=== PATIENT | female | born 1950 | race Caucasian/White ===

== ENCOUNTER → 2018-10-08 | Outpatient (CLI) | payer OTHER | LOC: CAT 08:19 | DX: Z13.6 Encounter for screening for cardiovascular disorders (principal); E78.00 Pure hypercholesterolemia, unspecified; Z82.49 Family history of ischemic heart disease and other diseases of the circulatory system ==

== ENCOUNTER 2018-11-18 09:39 | Observation (INO) | payer OTHER ==
[~2018-11-18] VITALS: Ht 157.5 cm; Wt 104.1 kg
[2018-11-18 10:16] VITALS: BP 124/54
[2018-11-18] MEDS ORDERED: LIPITOR 20 MG T20 M1 PO (10:23)
[2018-11-18] MEDS ORDERED: ASPIRIN325 PO (10:23)
[2018-11-18 10:24] LABS: HEMATOCRIT 40.3 % (37.0-47.0); HEMOGLOBIN 13.6 gm/dL (12.0-15.0); MCH 30.5 pg (26.0-34.0); MCHC 33.7 g/dL (28.0-37.0); MCV 90.4 fL (80.0-100.0); RBC 4.46 mil/uL (4.20-5.00); RDW 13.4 % (10.5-14.5); WBC 6.8 thou/uL (4.0-11.0)
[2018-11-18] MEDS ORDERED: PRINIVIL10 MG PO (10:24)
[2018-11-18] MEDS ORDERED: PAXIL10 MG PO (10:24)
[2018-11-18 10:32] LABS: CALCIUM 9.9 mg/dL (8.5-10.1); POTASSIUM 4.6 mmol/L (3.5-5.1)
--- NOTE | 2018-11-18 15:23 | CATHLAB ---
[facility] [address] [place] [address] INVASIVE PROCEDURE REPORT Name: LASHANDABOBBY [facility] [id number] ������������� Admission: 11/18/18 ������������� Attend Phys: Valente Dc Discharge: ��� ������������� ��� Date of : 52 Date of Service: 11/18/18 1523 �� Report #: [id number] �������� ��������������������������������������������[id number] THIS REPORT FOR: //name// APPROVED REPORT Study performed: 11/18/2018 10:43:15 Patient Details Patient Status: Out-Patient Room #: The patient is a 68 year-old female Event Personnel Valente Olivas Hockey Scout, Jenny Dunne Monitor, Lauren Dunne RTR Monitor, Orlin Martin RN RN, Satya Bermeo RTR Scrub, Tree Alfonso RTR Scrub Procedures Performed Art Access - R femoral artery* Hemostasis w/ Mynx Left Heart Cath w/or w/o Coronaries [id number] [facility] [address] Place w/wo Plasty Single LAD 664319 51101 Initial Mod Sed Same Phys/QHP Gr5y 463490 21242 Mod Sed Same Phys/QHP Ea [id number], supervision of conscious sedation Indication Dyspnea, Positive stress test, Chest pain Procedure Narrative The Right Groin^ was infiltrated with 1% Lidocaine subcutaneous anesthesia. A PINNACLE 4FR Sheath #[id number] sheath was inserted into the RFA 4 fr^. Coronary angiography was performed using coronary diagnostic catheters. The right coronary system was accessed and visualized with a 4FR AR MOD #[id number] catheter. The left coronary system was accessed and visualized with a JL 4 catheter. The left ventricle was accessed and visualized with a ANGLED PIGTAIL catheter. Left ventricular/Aortic Valve gradient assessed via catheter pullback. Pre-demployment femoral angiogram was performed . Closure device was deployed with a 6 Fr MYNXGRIP 6/7F #[id number]. There was no hematoma. Intraoperative Conscious Sedation Sedation start time: 11:06 Case end Time: 12:04 Versed 4 mg Fluoro Time: 16.30 minutes [facility] [address] [place] [address] INVASIVE PROCEDURE REPORT Name: BOBBY PYLE Room #: REG [facility]#: [id number] ������������� Admission: 11/18/18 ������������� Attend Phys: Valente Dc Discharge: ��� ������������� ��� Date of : 52 Date of Service: 11/18/18 1523 �� Report #: [id number] �������� ��������������������������������������������[id number] Dose: DAP 58643.45 cGycm2 2326 mGy Contrast Type and Amount: Omnipaque 115 ml Coronary Angiography The patient's coronary anatomy is right dominant. Diagnostic Cath Left Main Normal origin moderate to large caliber bifurcates left anterior descending left circumflex. There is a mild proximal taper of under 50%. No high-grade lesions are noted. LAD Moderate caliber type II vessel with proceeds in the anterior interventricular sulcus. Following the origin of first diagonal branch there is a tortuous segment of the proximal mid LAD visit eccentric greater than 90% stenosis. The vessel then continues on reconstitutes itself in a tortuous fashion towards the apex and terminates is a small-caliber vessel at the apex Diagonal 1 Small-caliber vessel without significant high-grade lesions noted Circumflex Small-caliber vessel which courses posteriorly gives rise to an early marginal versus ramus branch. The vessel continues posteriorly giving rise to posterior lateral marginal branch without high-grade lesions but an presence of luminal irregularities noted OM1 Small-caliber less than 1 mm vessel and has sequential 70 and 90% blockages. The vessel then rapidly tapers to less than 1 mm diameter and terminates in the mid left ventricular chamber level Right Coronary Moderate to large caliber vessel normal origin proceeds in the AV groove. The proximal portion there is an eccentric 50% lesion followed by a eccentric less stenotic portion. The vessel then continues on after giving rise to small nondominant significant RV marginal branches to the crux of the heart were posterior descending artery originates. There is a proximal/ostial eccentric 50% lesion noted but does not appear to flow limiting and does not dampen with catheter placement. R PDA Small caliber vessel free of high-grade disease Left Ventriculography Left Ventriculography was not performed. Hemodynamics The aortic pressure is 124/57 mmHg with a mean of 82 mmHg. The left ventricular pressure is 142/9 mmHg with a mean of mmHg. The left ventricular end diastolic pressure is 28 mmHg. PCI Technique [facility] [address] [place] [address] INVASIVE PROCEDURE REPORT Name: BOBBY PYLE Room #: REG SHAJI Kwon#: [id number] ������������� Admission: 11/18/18 ������������� Attend Phys: Valente Dc Discharge: ��� ������������� ��� Date of : 52 Date of Service: 11/18/18 1523 �� Report #: [id number] �������� ��������������������������������������������[id number] After determination intervention was appropriate the 4 Egyptian system was exchanged for a 6 Egyptian system. A standard Radha left guide was engaged the left coronary ostium with her was some dampening noted. This was removed and a Turned On Digital JL4 sidehole catheter was then placed. He'll 14 wire was advanced distally and a 2.5 x 18 mm Medtronic AUBREE stent was primarily deployed. This required several inflations maximum of 20 ana lilia for full deployment visualization. The device is a then removed and imaging demonstrated excellent results. At this point attention was placed to the first marginal/ramus and was deemed to be less than 1.5 mm in diameter. Therefore intervention was not carried forth. Patient tolerated procedure well. Was given Effient post procedure. PCI Technique Lesion Percutaneous coronary intervention was performed on the mid left anterior descending artery segment. A VISTA 6FR JL4 #[id number] Guide Catheter was used to engage the ostium. A Luge Wire (J) .014 X 182CM #[id number] Interventional Guidewire was used to cross the lesion. STENT DEPLOYMENT A drug-eluting stent RESOLUTE LADI OTW 2.5 X 18 #[id number] was inserted and inflated up to 12.00atm for 15seconds. Additional Inflation: 16.00atm for 9seconds. Additional Inflation: 20.00atm for 9seconds. Conclusion 1. Coronary artery disease severe single-vessel 2. Normal hemodynamics Date. Successful percutaneous revascularization of the proximal mid left anterior descending artery with a 2.5 x 18 mm resolute AUBREE stent taken to 20 ana lilia Recommendations Cardiac Risk Reduction Program Continued dual antiplatelet therapy regimen percent of protocol. Medications Administered Prasugrel ��������������������������������������������� <ELECTRONICALLY SIGNED> ���������������������������������������� By: Valente Olivas MD ��������������������������������������������� 11/18/18 1523 1523 1523 Valente Olivas MD /INF
--- NOTE | 2018-11-18 19:16 | NUR ---
TO THE UNIT FROM BLIND ESCORT - ORIENTED TO ROOM AND BEDSPACE. ASSESSMENT CHARTED - PT UP TO THE CHAIR AMBULATED TO THE BATHROOM GROIN SITE STABLE - NO CO'S OF PAIN.
[2018-11-18 19:33] VITALS: BP 116/41
[2018-11-19 03:25] VITALS: BP 118/43
--- NOTE | 2018-11-19 06:52 | NUR ---
PATIENTS CAREES WERE ASSUMED AT SHIFT CHANGE, PATIENT WAS ASSESED AND MEDS WERE PASSSED. THIS HAS BEEN AN UNEVENTFUL NIGHT FOR HER. NURSING BELIEVES SHE SLEPT SEVEN TO EIGHT HOURS. ROUNDING WAS DONE. THE BED IS IN A LOW AND LOCKED POSITION
[2018-11-19] MEDS ORDERED: EFFIENT10 MG PO (08:03)
--- NOTE | 2018-11-19 08:05 | EKG ---
[place] [address] [address] [place] [address] ELECTROCARDIOGRAM REPORT Name: BOBBY PYLE Room #: 202-P [facility].#: [id number] ������������������ Admission: 11/18/18 ������������������ Attend Phys: Valente Olivas Discharge: ������������������ Date of : 52 Report #: [id number] ����������������������������������������������������������������� [id number] THIS REPORT FOR: //name// [facility] Test Date: 2018-11-18 Test Time: 10:03:49 Pat Name: BOBBY PYLE Department: Room: 202 Gender: F Alteration Inspector: Meg RIDLEY : 1950 Requested By: Valente Olivas Order Number: [id number] MD: Davin White Measurements Intervals [place] Rate: 66 P: 50 MO: 145 QRS: 52 QRSD: 90 T: 22 QT: 386 QTc: 405 Interpretive Statements Sinus rhythm Normal tracing No previous ECG available for comparison Electronically Signed On 11-19-2018 8:04:47 CDT by Davin White [email or web address] ��������������������������������������������� <ELECTRONICALLY SIGNED> ���������������������������������������� By: Davin White MD, LOCATED WITHIN [facility] ��������������������������������������������� 11/19/18 0804 1003 1003 Davin White MD, FACC /EPI
[2018-11-19 08:10] VITALS: BP 140/63
[2018-11-19] MEDS ORDERED: CRESTOR40 MG PO (08:19)
[2018-11-19 11:10] VITALS: BP 139/50
[2018-11-19 15:55] VITALS: BP 137/60
[2018-11-19 16:19] VITALS: BP 137/60
--- NOTE | 2018-11-19 18:41 | NUR ---
ASSUMED CARE OF PATIENT AT 0700. PATIENT IS UP AD JERARDO IN THE ROOM. SHE HAS A RIGHT GROIN SITE WHICH IS CLEAN, DRY AND INTACT WITHOUT SIGNS OF HEMATOMA OR EDEMA. PATIENT DENIES ANY TENDERNESS. SHE IS ANXIOUS TO GO HOME. ASSESSMENTS CHARTED. PATIENT D/C AT [address] EDWARDS. RIGHT GROIN SITE AGAIN FREE FROM ANY HEMATOMA, EDEMA OR PAIN. PATIENT STATES THAT SHE HAS ALL OF HER BELONGINGS. SHE STATES THAT SHE FEELS BETTER THAN SHE DID WHEN SHE ARRIVED. SHE WAS TAKEN VIA WHEELCHAIR TO THE ER ENTRANCE TO BE DRIVEN HOME BY HER .
== END 2018-11-19 16:55 | disposition home or self-care (01) ==
LOC: CATH 09:39 → 2N 18:44
PROVIDERS: ADMIT Internal Medicine
DX: I25.10 Atherosclerotic heart disease of native coronary artery without angina pectoris (principal); I10 Essential (primary) hypertension; R93.1 Abnormal findings on diagnostic imaging of heart and coronary circulation; Z79.899 Other long term (current) drug therapy

== ENCOUNTER → 2019-12-06 | Outpatient (CLI) | payer OTHER ==
[~2019-12-06] MED LIST: ASPIRIN325 PO; CRESTOR40 MG PO; EFFIENT10 MG PO; LIPITOR 20 MG T20 M1 PO; PAXIL10 MG PO; PRINIVIL10 MG PO
== END ==
LOC: SJCVC 13:35
PROVIDERS: ATTEND Internal Medicine
DX: I49.1 Atrial premature depolarization (principal); I25.10 Atherosclerotic heart disease of native coronary artery without angina pectoris; I10 Essential (primary) hypertension; E78.5 Hyperlipidemia, unspecified; J30.2 Other seasonal allergic rhinitis; Z79.82 Long term (current) use of aspirin; Z79.899 Other long term (current) drug therapy; Z87.891 Personal history of nicotine dependence

== ENCOUNTER → 2020-12-07 | Outpatient (CLI) | payer OTHER ==
[~2020-12-07] MED LIST changes: +ASA81BEC PO; +PAXIL40 MG PO; +PLAVIX 75 MG TA75 MG PO; -PRINIVIL10 MG PO; +PUB MULTIVITAM1 EACH PO; +ZESTRIL10 MG PO
== END ==
LOC: SJCVCIMAG 13:42
PROVIDERS: ATTEND Internal Medicine
DX: I07.1 Rheumatic tricuspid insufficiency (principal); I25.10 Atherosclerotic heart disease of native coronary artery without angina pectoris; Z79.899 Other long term (current) drug therapy

== ENCOUNTER → 2020-12-15 | Outpatient (CLI) | payer OTHER ==
[~2020-12-15] MED LIST changes: +PERCOCET PO
[2020-12-15 13:50] LABS: URINE BILIRUBIN NEGATIVE (Negative); URINE BLOOD 1+ (Negative); URINE CLARITY CLEAR; URINE COLOR YELLOW; URINE GLUCOSE-RANDOM* NEGATIVE (Negative); URINE KETONES NEGATIVE (Negative); URINE LEUKOCYTES-REFLEX NEGATIVE (Negative); URINE NITRITE-REFLEX NEGATIVE (Negative); URINE PROTEIN (DIPSTICK) NEGATIVE (Negative); URINE SPECIFIC GRAVITY 1.025 (1.005-1.035); URINE UROBILINOGEN 0.2 E.U./dl (0.2-1.0)
[2020-12-15 13:51] LABS: HEMATOCRIT 39.2 % (37.0-47.0); HEMOGLOBIN 12.9 gm/dL (12.0-15.0); MCH 30.2 pg (26.0-34.0); MCV 91.5 fL (80.0-100.0); RBC 4.29 mil/uL (4.20-5.00); RDW 13.3 % (10.5-14.5); WBC 6.9 thou/uL (4.0-11.0)
[2020-12-15 14:04] LABS: INR 0.97; PROTIME 10.6 Seconds (10.5-12.1)
[2020-12-15 14:05] LABS: SQUAMOUS 0-3 Few /LPF (0-3); URINE WBC-REFLEX 0-5 Rare /HPF (0-5)
[2020-12-15 14:06] LABS: BACTERIA-REFLEX 1-9 Few /HPF (None Seen); URINE RBC 3-10 Few /HPF (NONE SEEN)
[2020-12-15 14:18] LABS: ALBUMIN 3.7 g/dL (3.4-5.0); CALCIUM 8.8 mg/dL (8.5-10.1); CREATININE 1.1 mg/dL (0.6-1.0); POTASSIUM 5.3 mmol/L (3.5-5.1)
== END ==
LOC: PAC 12:21
PROVIDERS: ATTEND Orthopaedic Surgery
DX: Z20.822 Contact with and (suspected) exposure to COVID-19 (principal); T84.038A Mechanical loosening of other internal prosthetic joint, initial encounter; Y83.8 Other surgical procedures as the cause of abnormal reaction of the patient, or of later complication, without mention of misadventure at the time of the procedure; Y92.89 Other specified places as the place of occurrence of the external cause

== ENCOUNTER 2020-12-19 06:32 | Day surgery (SDC) | payer OTHER ==
[~2020-12-19] VITALS: Ht 157.5 cm; Wt 102.1 kg
--- NOTE | ~2020-12-19 | O ---
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 PROCEDURE: Revision right total knee arthroplasty patella only. SURGEON: Sanjeev Soliz MD. FOOT TENDER: Brenda Nascimento PA-C. INDICATION FOR FOOT TENDER: Throughout the case, extensive retraction and manipulation of the knee was required. This was afforded to me by my bankruptcy assistant. ANESTHESIA: LMA with adductor canal block. IMPLANTS: Casanova and Nephew size 35 patella. TOURNIQUET TIME: 29 minutes. ESTIMATED BLOOD LOSS: 25 mL SPECIMENS: Intraoperative cultures were taken and sent. CONDITION UPON LEAVING THE OR: Stable. INDICATIONS FOR PROCEDURE: The patient is a 70-year-old female who is several years out from a right total knee arthroplasty performed by a different surgeon and myself. She came to me for a second opinion. She has been having anterior knee pain, particularly a click at about 30 degrees of flexion. This clicking has been increasingly painful and x-rays showed possible loosening of her patellar component. Bone scan was performed and this did light up around her patellar component. It was felt that she had aseptic loosening of her patella. After discussion with her, she elected for revision of her total knee arthroplasty of the patellar component only. DESCRIPTION OF PROCEDURE: Risks, benefits, alternatives, complications were [facility] [address] [place] [address] OPERATIVE REPORT Name: BOBBY PYLE Room #: 150-2 [facility]..#: [id number] Admission: 12/19/20 Attend Phys: Sanjeev Soliz MD Discharge: Date of : 52 Report #: [id number] discussed in detail with the patient including but not limited to risk of anesthesia, risk of damage to nerves, arteries, blood vessels, risk for infection, bleeding, risk for DVT, PE, need for reoperation. Informed consent was obtained from the patient. Right knee was appropriately marked in the preoperative holding area. IV Ancef was given for preoperative antibiotics. Adductor canal block was placed by anesthesia. She was brought to the operating room and placed in supine position on the operating table. LMA anesthesia was induced without complication. Tourniquet was placed on the right thigh. Right lower extremity was prepped and draped in normal sterile fashion. Timeout was performed properly identifying the patient and procedure as well as the instrumentation and implants. All in the operating room in agreement. Right lower extremity was exsanguinated, tourniquet was inflated. Tourniquet time was 29 minutes. The previous scar was used and this was opened with a 10 blade. Dissection was taken down sharply to the fascia and deep flaps were developed medially and laterally. Fresh 10 blade was used to make a medial parapatellar arthrotomy and there was normal-appearing synovial fluid. Cultures of this were taken and sent x2. The patella was everted and scar tissue was dissected around the patella. Patellar component was then removed with oscillating saw and cleanup cut was made of the patella. Patellar trial component was removed. The patella was thoroughly irrigated with normal saline and the final size 35 Casanova and Nephew patellar component was cemented in place using standard cementation techniques. While the cement cured, a periarticular injection consisting of morphine, ropivacaine, epinephrine, Toradol was placed around the knee joint capsule. After the cement cured, tourniquet was deflated. Hemostasis was obtained with Bovie cautery. A gram of vancomycin was placed deep in the joint. The fascia was closed with 0 Vicryl. Skin was closed with 2-0 Vicryl. Skin staple and a YANE dressing was applied. The patient tolerated this procedure well and went to recovery room under care of anesthesia postoperatively. By: 0816 0908 Sanjeev Soliz MD /josé
[~2020-12-19 06:32] MED LIST changes: -PERCOCET PO
[2020-12-19 07:18] LABS: CALCIUM 9.2 mg/dL (8.5-10.1); CREATININE 1.3 mg/dL (0.6-1.0); POTASSIUM 4.4 mmol/L (3.5-5.1)
[2020-12-19 07:34] VITALS: BP 122/67
[2020-12-19] MEDS ORDERED: PERCOCET PO (08:42)
[2020-12-19 09:01] VITALS: BP 122/67
== END 2020-12-19 09:01 | disposition home or self-care (01) ==
LOC: OR 06:32 → TBA 06:32 → OR 09:01
PROVIDERS: Anesthesiology; ATTEND Orthopaedic Surgery
DX: T84.032A Mechanical loosening of internal right knee prosthetic joint, initial encounter (principal); M25.561 Pain in right knee; I10 Essential (primary) hypertension; E78.00 Pure hypercholesterolemia, unspecified; F41.9 Anxiety disorder, unspecified; Z98.890 Other specified postprocedural states; Z79.899 Other long term (current) drug therapy; Z87.891 Personal history of nicotine dependence; Z85.820 Personal history of malignant melanoma of skin; Z79.82 Long term (current) use of aspirin; Z96.653 Presence of artificial knee joint, bilateral; Y83.8 Other surgical procedures as the cause of abnormal reaction of the patient, or of later complication, without mention of misadventure at the time of the procedure
CPT/HCPCS: 50010; 50101; 50415; 50954; 51130; 51225; 51320; 51412; 52282; 53000; 53078; 56528; 57095; 57103; 57116; 57180; 58138; 58384; 62110; 62900; 70005